=== PATIENT | female | born 1965 | race Caucasian/White ===

== ENCOUNTER 2022-06-23 06:20 | Day surgery (SDC) | payer OTHER ==
[~2022-06-23] VITALS: Ht 157.5 cm; Wt 72.7 kg
[~2022-06-23 06:20] MED LIST: HYDROCHLOROTH12.5 M1 PO; MOBIC7.5 MG PO; PREMARIN1.25 MG PO; TIROSINT137 MCG PO; TRAZODONE HCL50 MG PO; ULTRAM50 MG PO
--- NOTE | 2022-06-23 06:36 | NUR ---
COVID 19 SWAB DONE TO BOTH NARES AND SENT TO IN HOUSE LAB.
[2022-06-23] MEDS ORDERED: ATACAND16 MG PO (06:46)
--- NOTE | 2022-06-23 10:36 | NUR ---
PT ALERT, ORIENTED AND SUPPORTED BY HER . PT IS HERE FROM [place], ALL QUESTIONS ASKED ANSWERED. PT REQUESTED PRAYER, WILL FOLLOW
[2022-06-23] MEDS ORDERED: XARELTO10 MG PO (11:01)
[2022-06-23] MEDS ORDERED: OXYCODONE HCL5 MG PO (11:01)
[2022-06-23] MEDS ORDERED: GABAPENTIN600 MG PO (11:01)
[2022-06-23] MEDS ORDERED: SENNA LAX8.6 MG PO (11:02)
[2022-06-23] MEDS ORDERED: KETOROLAC TROME10 MG PO (11:02)
--- NOTE | 2022-06-23 11:10 | NUR ---
06/23/22 1110 Estelle Iraheta 1103 PATIENT ARRIVES TO PACU AWAKE BUT DROWSY. DENIES PAIN OR NAUSEA. RESP EVEN AND UNLABORED, MASK AT 6 LITERS. 1109 PATIENT AWAKE OFF/ON, BUT DROWSY. RESP EVEN AND UNLABORED, MASK OFF, NC ON AT 2LITERS. PATIENT CONTINUES TO DENY PAIN OR NAUSEA.
--- NOTE | 2022-06-23 11:39 | NUR ---
PT IS BACK TO DS FROM PACU. SHE IS BACK TO HER BASELINE. CALL LIGHT IS WITHIN REACH. SHE IS TOLERATING SIPS OF WATER. SHE WOULD LIKE SOME PUDDING. HER PAIN IS A 6/10, SHE IS EDUCATED THAT IF TOLERATES THE PUDDING SHE WILL GET AN ORAL PAIN PILL. NO FAMILY AT THE BEDSIDE AT THIS TIME. NO ADDITIONAL NEEDS OR CONCERNS.
--- NOTE | 2022-06-23 11:54 | NUR ---
PT IS TOLERATING WATER AND PUDDING. FAMILY IS NOW AT THE BEDSIDE. SHE IS GIVEN AN ORAL PAIN PILL.
--- NOTE | 2022-06-23 12:46 | NUR ---
PT IS TOLERATING WATER AND PUDDING. SHE REPORTS PAIN AN 8/10. CALL LIGHT WITHIN REACH. IS AT THE BEDSIDE. NO ADDITIONAL NEEDS OR CONCERNS.
--- NOTE | 2022-06-23 13:08 | NUR ---
LE 1245: PT IS ASSISTED UP OOB FOR THE FIRST TIME TO USE THE RESTROOM. SHE IS ABLE TO AMBULATE WITH STANDBY ASSIST AND WALKER TO AND FROM THE BATHROOM. SHE IS ABLE TO VOID 800MLS.
--- NOTE | 2022-06-23 13:18 | NUR ---
PT PROVIDED AN INCENTIVE SPIROMETER. PT REPORTS SHE HAS USED THEM IN THE PAST. PT ABLE TO DEMONSTRATE USE AND WAS ABLE TO REACH THE TOP OF THE INCENTIVE SPIROMETER. EDUCATED PT TO USE EVERY HOUR. PT STATES UNDERSTANDING. PT'S NURSE NOTIFIED.
--- NOTE | 2022-06-23 13:46 | NUR ---
PT IS DOING WELL, HER PAIN IS WELL MANAGED. SHE HAS MET ALL DC CRITERIA, EXCEPT FOR WORKING WITH PHYSICAL THERAPY. NO ADDITIONAL NEEDS OR CONCERNS AT THIS TIME.
--- NOTE | 2022-06-23 14:52 | NUR ---
1427: PT COMPLETES PHYSICAL THERAPY AND IS SAFE TO DC HOME PER CALI. DR. BANERJEE NOTIFIED OF PT STATUS AND AGREES THAT PT IS SAFE TO DC HOME AT THIS TIME. PT RATES PAIN 7/10 AND STATES, "IT'S FINE, I CAN HANDLE IT... I JUST WANT TO GO HOME." PT DENIES ANY NAUSEA AND ICED WATER IS REFILLED FOR LONG DRIVE HOME. DC INSTRUCTIONS PRESENTED VERBALLY AND WRITTEN TO PT, SPOUSE WAITING AT FRONT DOORS IN PERSONAL VEHICLE. PT DC FROM DS RM 6 VIA WC TO SPOUSE, ABLE TO TRANSFER SELF FROM WC TO VEHICLE WELL.
--- NOTE | 2022-06-27 06:21 | OR ---
[facility] [address] [place], [place] [address] Signed DATE OF OPERATION: 06/23/2022 SURGEON: Jaciel Garcia MD PREOPERATIVE DIAGNOSIS: Degenerative joint disease, left knee. POSTOPERATIVE DIAGNOSIS: Degenerative joint disease, left knee. PROCEDURE PERFORMED: Left total knee arthroplasty with David. PONY ROUGHER: None. ANESTHESIA: Spinal. BLOOD LOSS: 175 mL. TOURNIQUET TIME: Zero. IMPLANTS: Wingate Triathlon size four femur, three tibia, 10 mm polyethylene and a 35 mm patella. BRIEF HISTORY: Jacy is a 56-year-old female with progressive worsening of osteoarthritis. It was nonresponsive to nonoperative treatment. Risks and benefits of operative treatment were discussed with her and she elected to proceed. PROCEDURE IN DETAIL: Once consent was obtained, she was taken to the operating room after adequate anesthesia, she was placed on operating table, all downside pressure points well padded. The right leg was prepped and draped in standard sterile fashion. The knee was approached through standard anterior incision. This was taken through skin subcutaneous tissue and a mid vastus arthrotomy was performed. The MCL was elevated with a sleeve around the posteromedial corner. The infrapatellar fat pad was excised. Anterior horns Electronically Signed By: JACIEL GARCIA MD 06/27/22 0621 PATIENT NAME: JACY MITCHELL FEBRUARY OPERATIVE REPORT DATE OF : 63 REPORT #: [id number] PHYSICIAN: JACIEL GARCIA MD PCP: JULIETH POND NP REPORT IS CONFIDENTIAL AND NOT TO BE RELEASED WITHOUT AUTHORIZATION [facility] [address] [place], [place] [address] Signed of menisci were transected as was the ACL. PCL was found to be intact. The knee was flexed and the computer ray was placed in the medial femoral condyle along with a checkpoint, checkpoint was placed in the proximal tibia and the tibial ray was placed percutaneously. The leg was then registered with computer as was the fine anatomic points of the knee. Varus valgus testing showed relatively equal balancing. The robot was then brought in, four straight cuts were made followed by the two angled cuts. Care was taken to protect the patellar tendon and MCL throughout. The bony remnants were removed as were any remaining osteophytes. The osteophytes removed off the posterior femur, but no release performed. The trials were positioned initially with 11 and switching to a 10 mm trial. The knee was quite stable from 0-140 degrees of flexion. The varus valgus testing was intact. The patella was cut sized and drilled for 35 mm patella. The distal femur was then drilled using the drill. The proximal tibia was finished using the keel punch and the small drills. She had excellent bone quality, so we elected to go with a non-cemented prosthesis. The implants were selected and the tibia was impacted in position first followed by the polyethylene. The femur was impacted in position and the knee was extended and nicely loaded. The patella was clamped and the clamp was removed. The final range of motion matched the trial. The periarticular soft tissue was injected with 100 mL ropivacaine Toradol mixture. The knee was pulse lavaged at intervals throughout the procedure. A total of 3 L normal saline was used. Aricept soak in the middle. The On-Q pain pump was percutaneously placed into the adductor canal from the suprapatellar pouch. The arthrotomy was then closed using #2 Stratafix, subcutaneous tissue with 0 Stratafix, and skin with 3-0 Stratafix. The wound was Dermabonded and dressed with the Acticoat 7 dressings, ABD and Sergio wrap. She tolerated procedure well. All sponge, needle, and instrument counts were correct. Jaciel Garcia MD BA/MODL /[id number] Copies: ~ Electronically Signed By: JACIEL GARCIA MD 06/27/22 0621 PATIENT NAME: JACY MITCHELL FEBRUARY OPERATIVE REPORT DATE OF : 63 REPORT #: [id number] PHYSICIAN: JACIEL GARCIA MD PCP: JULIETH POND NP REPORT IS CONFIDENTIAL AND NOT TO BE RELEASED WITHOUT AUTHORIZATION
== END 2022-06-23 14:40 | disposition home or self-care (01) ==
LOC: DS 06:20
PROVIDERS: ATTEND Specialist
DX: M17.12 Unilateral primary osteoarthritis, left knee (principal); Z20.822 Contact with and (suspected) exposure to COVID-19
CPT/HCPCS: 64447; 76942; 87502; 97161; A9270; C1713; C1776; C9803; J0690; J1100; J1885; J2001; J2250; J2704; J2795; J7121; U0003